=== PATIENT | male | born 1985 ===

== ENCOUNTER 2022-12-20 02:40 | Emergency (ER) | payer OTHER, SELFPAY ==
--- NOTE | ~2022-12-20 | XR_ITS ---
EXAMINATION: XR SHOULDER, RIGHT CLINICAL INFORMATION: Pain COMPARISON: None available. TECHNIQUE: Two views of the right shoulder. FINDINGS: No acute fracture or dislocation. Glenohumeral and acromioclavicular alignment is anatomic. Small marginal osteophytes along the joint. No abnormal soft tissue calcifications. XR/XR shoulder RT min 2V IMPRESSION: * No acute findings. * Mild acromioclavicular arthrosis.
[2022-12-20 02:50] VITALS: BP 149/91; PULSE 78; RESP 18; TEMP 36.9; O2SAT 100; BMI 32.5
--- NOTE | 2022-12-20 05:35 | ED.EXTPRO ---
HPI - Extremity Problem General Chief complaint: Extremity Problem Stated complaint: Right shoulder pain Time Seen by Provider: 12/20/22 04:23 Source: patient Mode of arrival: ambulatory Limitations: no limitations History of Present Illness HPI Narrative: 37-year-old male came in for evaluation of right shoulder pain. Patient woke up from sleep yesterday with right shoulder pain, declined any recent trauma or injury to the right shoulder, pain is localized to the right shoulder more with moving or touching the right shoulder, patient thinks he slept on his right shoulder the night before and that is what is causing his pain. No fever, no chills, no CP, no SOB. Related Data Previous Rx's Medication Instructions Recorded oxycodone 5 mg tablet 5 mg PO Q8H PRN pain #14 tabs 12/20/22 Allergies Allergy/AdvReac Type Severity Reaction Status Date / Time No Known Allergies Allergy Verified 12/20/22 02:52 Review of Systems Review of Systems: All other systems are reviewed and are negative Constitutional: Reports as per HPI and Reports no additional constitutional complaints Eyes: Reports as per HPI and Reports no additional eye complaints Reports system reviewed and no additional complaints, except as documented Cardiovascular: Reports as per HPI and Reports no additional cardiovascular complaints Respiratory: Reports as per HPI and Reports no additional respiratory complaints Gastrointestinal: Reports as per HPI and Reports no additional gastrointestinal complaints Genitourinary: Reports no additional female genitourinary complaints Musculoskeletal: Reports no additional musculoskeletal complaints Skin/Breast: Reports system reviewed and no additional complaints, except as docu Psychiatric: Reports no additional psychiatric complaints Endocrine: Reports no additional endocrine complaints Hematologic/Lymphatic: Reports no additional hematologic/lymphatic complaints Allergic/Immunologic: Reports no additional allergic/immunologic complaints Reports system reviewed and no additional complaints, except as documented and Reports Abnormal speech present [facility] Social History Social History Advance Directives: No Advance Directives Information Provided: Yes Physical Exam Vital Signs: Vital Signs: Last Vital Signs Temp 98.4 F 12/20/22 02:50 Pulse 78 12/20/22 02:50 Resp 18 12/20/22 02:50 BP 149/91 H 12/20/22 02:50 Pulse Ox 100 12/20/22 02:50 O2 Del Method Room Air 12/20/22 02:50 BMI result Body Mass Index 32.5 Vital signs have been reviewed as appeared to be correct. Blood pressure normal. Heart rate normal. Respiration rate normal. Temperature normal. Oxygen saturation normal. Appearance: Alert. Oriented X3. No acute distress. Head: Normal external exam. Normocephalic. Atraumatic. No Ochoa signs noted. No raccoon eyes noted Eyes: PERRLA. EOMI. Conjunctiva and sclera normal. Eyelids normal. ENT: TM's Normal. Pharynx normal. Uvula midline. Moist mucous membranes. No trismus noted. No drooling noted. No muffled voice noted. Neck: Normal inspection. Neck supple. FROM. No adenopathy. Thyroid Normal. No meningeal signs. No neck mass noted. CVS: Normal heart rate and rhythm. Heart sound normal. No murmurs noted. Pulses normal throughout. Respiratory: No respiratory distress. Painless inspiration. Breath sounds normal. No wheezes/rales/rhonchi noted. Chest nontender. No accessory muscle usage noted or decreased air movement noted. Abdomen: Soft and nontender. Bowel sounds normal in all 4 quadrants. No distention noted. No organomegaly noted. No visible injury noted. Back: No CVA tenderness. Full range of motion noted. Skin: Skin warm and dry. Normal skin color. Normal skin turgor. No rashes/lesions/lacerations noted. Extremities: Right shoulder held in adduction position with tender abduction, no deformity, no anterior fullness, neurovascular exam is intact. Neuro: Oriented X 3. Cranial nerve exam: II-XII are grossly intact No motor deficit. No sensory deficit. Reflexes normal. Course Course Course Narrative: Shoulder immobilization, pain control, heating pads, follow-up with orthopedic. Medical Decision Making Differential Diagnosis Differential Diagnoses: The differential diagnosis associated with the presentation includes (Rotator cuff tendinitis, arthritis, shoulder dislocation, fracture.) Independent Interpretation I performed an independent interpretation of an: Plain X-Ray (Right shoulder: No acute fracture, no dislocation.) Discharge Plan Discharge Clinical Impression: Right rotator cuff tendinitis Patient Disposition: Home, Self-Care Instructions: Rotator Cuff Tendinitis (ED) Prescriptions: New oxycodone 5 mg tablet 5 mg PO Q8H PRN (Reason: pain) Qty: 14 0RF Rx Instructions: Partial Fill upon patient request. Referrals: Rick Babcock MD [Physician] - Stand Alone Forms: Work/School Release
[2022-12-20] MEDS: oxyCODONE HCl Immed Release 5 MG TABLET 10 MG PO (05:47)
== END 2022-12-20 05:51 | disposition home or self-care (01) ==
PROVIDERS: Emergency Provider Emergency Medicine
DX: M75.101 Unspecified rotator cuff tear or rupture of right shoulder, not specified as traumatic (principal); M25.511 Pain in right shoulder
CPT/HCPCS: 73030; 99283

== ENCOUNTER 2024-10-15 10:08 | Emergency (ER) | payer BC, SELFPAY ==
[2024-10-15 10:12] VITALS: BP 148/91; PULSE 98; RESP 20; TEMP 36.9; O2SAT 100; BMI 31.6
--- NOTE | 2024-10-15 10:59 | ED_ITS ---
HPI - Dental/Oral General Chief complaint: Dental/Oral Stated complaint: Mouth pain, swelling Time Seen by Provider: 10/15/24 10:58 Source: patient and RN notes reviewed Mode of arrival: ambulatory Limitations: no limitations History of Present Illness ED Provider: Gloria Melton PA-C HPI Narrative: This is a 38-year-old male who presents emergency department for evaluation of left lower dental pain. 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 Patient reports that he has had increased pain to his right lower dentition starting yesterday. Denies any fevers or chills. Denies taking any medications at home to treat his current symptoms. Related Data Previous Rx's ?Medication ?Instructions ?Recorded oxycodone 5 mg tablet 5 mg PO Q8H PRN pain #14 tabs 12/20/22 acetaminophen 500 mg tablet 1,000 mg (2 x 500 mg) PO QID PRN 10/15/24 (Tylenol Extra Strength) pain #30 tabs amoxicillin 875 mg-potassium 1 tab PO BID 7 days #14 tabs 10/15/24 clavulanate 125 mg tablet ibuprofen 600 mg tablet 600 mg PO Q6H PRN pain #30 tabs 10/15/24 Allergies Allergy/AdvReac Type Severity Reaction Status Date / Time No Known Allergies Allergy Verified 10/15/24 10:15 Review of Systems Review of Systems: Yes all other systems are reviewed and are negative Constitutional: Constitutional: Reports as per [facility] Social History Social History Advance Directives: No Advance Directives Information Provided: Yes Do you have a plan to hurt others: No Plan Physical Exam Vital Signs: Vital Signs: Last Vital Signs Temp 98.5 F 10/15/24 11:16 Pulse 98 10/15/24 11:16 Resp 20 10/15/24 11:16 BP 148/91 H 10/15/24 11:16 Pulse Ox 100 10/15/24 11:16 O2 Del Method Room Air 10/15/24 11:16 BMI result Body Mass Index 31.6 Const: General: cooperative, comfortable and no acute distress Orientation/consciousness: patient oriented x3 Limitations: no limitations HEENT: Other: Tooth number 32 with very poor dentition, cracked, into cane. Surrounding teeth with notable decay, no gingival erythema, edema, fluctuance. No evidence of dental abscess. Head: Yes normal to inspection, Yes normocephalic and Yes atraumatic Ears: hearing grossly normal bilaterally General nose exam: Normal external nose present Face and sinus: Yes normal facial exam Mouth: Normal oral and palatal mucosa present, oropharynx normal and moist mucous membranes Teeth and gingiva: poor dentition Throat: Yes posterior oropharynx normal Eyes: General: appearance normal, both eyes and all related structures Eyelids: Yes eyelids normal Conjunctivae: conjunctivae normal Sclerae: sclerae normal Pupils: Equal, round and reactive pupils present EOM: EOMs intact bilaterally Neck: Neck: Yes normal visual inspection, Yes full ROM and Yes no lymphadenopathy Lymphatic: no lymphadenopathy noted Chest: Chest palpation & inspection: normal inspection of the chest Resp: Effort & Inspection: normal respiratory effort and able to speak in complete sentences Auscultation: clear to auscultation bilaterally Cardio: Rate: regular rate Rhythm: regular rhythm GI: Inspection: Yes normal to inspection Skin: General skin exam: no rashes or lesions noted Trauma: no lacerations or abrasions Wounds: no wounds Neuro: General: patient oriented x3 and moves all extremities Cranial nerves: Yes Equal, round and reactive pupils present Extrem: General: Yes normal to inspection Right upper extremity: normal to inspection Left upper extremity: normal to inspection Right lower extremity: normal to inspection Left lower extremity: normal to inspection Medical Decision Making Medical Decision Making MDM Narrative: This is a 38-year-old male who presents emergency department with complaints of dental pain which started yesterday. On arrival, patient mildly hypertensive at 148/91, all other vital signs within normal limits. Right upper and lower dentition in poor repair, specifically tooth number 32 is decayed, cracked. There is no evidence of dental abscess requiring incision and drainage today. Urged the importance of following up with a dentist as antibiotics are only a temporary solution. He understands this and he will follow-up with a dentist, encouraged to call today. He understands and agrees with plan. Given strict return precautions. Patient stable for discharge Differential Diagnosis Differential Diagnoses: The differential diagnosis associated with the presentation includes dental decay, dental abscess, dental fracture, TMJ Discharge Plan Discharge Clinical Impression: Toothache Patient Disposition: Home, Self-Care Instructions: Toothache (ED) Additional Instructions: You were seen in the emergency department due to dental pain. Please take prescribed antibiotic as directed. Finish the entire course even if your symptoms improve. You need to follow-up with a dentist, call today to make an appointment. Alternate between ibuprofen and or Tylenol as needed for pain and symptoms. Take ibuprofen 600 mg every 6 hours, 2 hours later take Tylenol 1g every 8 hours. Alternating between these 2 medications can help achieve a better managed pain. If any new or worsening symptoms occur including but not limited to worsening pain, swelling, fevers, chills, please seek emergent care. Prescriptions: New amoxicillin-pot clavulanate 875-125 mg tablet 1 tab PO BID 7 Days Qty: 14 0RF ibuprofen 600 mg tablet 600 mg PO Q6H PRN (Reason: pain) Qty: 30 0RF acetaminophen [Tylenol Extra Strength] 500 mg tablet 1,000 mg PO QID PRN (Reason: pain) Qty: 30 0RF No Action oxycodone 5 mg tablet 5 mg PO Q8H PRN (Reason: pain) Qty: 14 0RF Rx Instructions: Partial Fill upon patient request. Stand Alone Forms: Work/School Release Interventions: ED Discharge Assessment Last Done: 10/15/24 11:16 Discharge Date/Time: 10/15/24 11:16 Print Language: Danish
[2024-10-15 11:16] VITALS: BP 148/91; PULSE 98; RESP 20; TEMP 36.9; O2SAT 100
== END 2024-10-15 11:16 | disposition home or self-care (01) ==
PROVIDERS: Emergency Provider Emergency Medicine Emergency Medical Services
DX: K08.89 Other specified disorders of teeth and supporting structures (principal)
CPT/HCPCS: 99282; 99283

== ENCOUNTER 2024-10-22 08:55 | Emergency (ER) | payer BC, SELFPAY ==
--- NOTE | ~2024-10-22 | CT_ITS ---
EXAMINATION: CT SOFT TISSUE NECK WITH CONTRAST CLINICAL INFORMATION: Right dental abscess versus edema. COMPARISON: None available. TECHNIQUE: Following the intravenous administration of 60 mL of Omnipaque 350 intravenous contrast, helical imaging was performed in the axial plane with generation of coronal and sagittal reformatted images. This CT examination was performed using dose optimization techniques as appropriate, variously including the following: *Automated exposure control *Adjustment of mA and/or kV according to patient size (this includes techniques or standardized protocols for targeted exams where dose is matched to indication/reason for exam; i.e. extremities or head) *Use of iterative reconstruction technique. DLP: 983 mGy centimeter. FINDINGS: There is a periapical hypodensity in the alveolar region of the right third molar of the maxilla and associated the small, less than 5 mm hypodensity along the buccal margin of the maxilla and slightly right retromolar. Multiple dental cavities in the right third molar of the maxilla. There are other multiple periapical hypodensities involving the maxilla and mandible. No peripheral enhancing fluid collections in the oral cavity. Skull base, nasopharynx, retropharynx, oropharynx, hypopharynx and larynx demonstrated no gross masses or fluid collections. The salivary glands demonstrated no solid masses or enhancing lesion nor enlargement. The intraconal and extraconal compartments of the orbits demonstrate no masses or fluid collections. Knitter Mechanic spaces, parapharyngeal spaces and carotid spaces demonstrated no gross masses. Bilateral prominent likely reactive cervical lymph nodes. The thyroid gland demonstrates normal size and enhancement pattern without dominant nodules. The vessels are patent. Tympanic cavities and mastoid cells are aerated. Mucosal thickening, maxillary sinuses. No air-fluid levels. Dextroconvex nasal septum deviation. Annalise bullosa left middle turbinate. Spondylosis C5-6 and C6-[address]/CT soft tissue neck w IV con IMPRESSION: Probable periapical abscess right third molar, maxilla with associated 5 mm phlegmon along the buccal margin/retromolar. Poor dentition. Bilateral prominent cervical lymph nodes. Electronically signed by: Carroll Jackson MD 10/22/2024 01:00 PM EDT
[2024-10-22 09:10] VITALS: BP 182/106; PULSE 102; RESP 20; TEMP 36.6; O2SAT 98; BMI 31.6
--- NOTE | 2024-10-22 11:08 | ED_ITS ---
HPI - Dental/Oral General Chief complaint: Dental/Oral Stated complaint: dental pain Time Seen by Provider: 10/22/24 10:51 Source: patient, RN notes reviewed and old records reviewed Mode of arrival: ambulatory History of Present Illness ED Provider: Aleida Mcintyre PA-C HPI Narrative: 39-year-old male with no significant past medical history presenting to the ED complaining of persistent right-sided dental pain and swelling x 1 week. Patient was seen and treated in our ED on 10/15 for similar symptoms prescribed Augmentin, ibuprofen/Tylenol which she took without relief. Reports persistent swelling/discomfort to area. Denies drainage, fever, chills, difficulty or inability to swallow, ear pain Related Data Previous Rx's ?Medication ?Instructions ?Recorded oxycodone 5 mg tablet 5 mg PO Q8H PRN pain #14 tabs 12/20/22 acetaminophen 500 mg tablet 1,000 mg (2 x 500 mg) PO QID PRN 10/15/24 (Tylenol Extra Strength) pain #30 tabs amoxicillin 875 mg-potassium 1 tab PO BID 7 days #14 tabs 10/15/24 clavulanate 125 mg tablet ibuprofen 600 mg tablet 600 mg PO Q6H PRN pain #30 tabs 10/15/24 clindamycin HCl 150 mg capsule 450 mg (3 x 150 mg) PO TID 7 days 10/22/24 #63 caps hydrocodone 5 mg-acetaminophen 325 1 tab PO Q8H PRN pain, severe 3 10/22/24 mg tablet days #9 tabs Allergies Allergy/AdvReac Type Severity Reaction Status Date / Time No Known Allergies Allergy Verified 10/22/24 09:10 Review of Systems 2 Review of Systems: Yes all other systems are reviewed and are negative Constitutional: Constitutional: Reports as per [facility] Past Medical History Attestation statement: The following information was validated with the patient. Source: old records reviewed Social History Social History Advance Directives: No Advance Directives Information Provided: Yes Do you have a plan to hurt others: No Plan Physical Exam 2 Vital Signs: Vital Signs: Last Vital Signs Temp 98.7 F 10/22/24 12:25 Pulse 70 10/22/24 12:25 Resp 18 10/22/24 12:25 BP 179/97 H 10/22/24 12:25 Pulse Ox 100 10/22/24 12:25 O2 Del Method Room Air 10/22/24 12:25 BMI result Body Mass Index 31.6 Const: General: cooperative, healthy appearing and no acute distress O rientation/consciousness: patient oriented x3 Limitations: no limitations HEENT: Other: + right-sided submandibular lymphadenopa thy appreciated. Mild tenderness to right lower gingiva. No erythema/cellulitis, no fluctuance/induration. No overt neck swelling Head: Yes normal to inspection and Yes atraumatic Ears: hearing grossly normal bilaterally, external ears normal and TM's normal bilaterally General nose exam: Normal external nose present Face and sinus: Yes normal facial exam Mouth: no drooling Teeth and gingiva: caries and poor dentition T hroat: Yes posterior oropharynx normal, Yes uvula midline, No peritonsillar mass, No uvula laterally displaced and No uvular edema Eyes: General: appearance normal, both eyes and all related structures EOM: EOMs intact bilaterally Neck: Neck: Yes normal visual inspection and Yes no meningeal signs Resp: Effort & Inspection: normal respiratory effort, no respiratory distress and no stridor Cardio: Rate: regular rate Skin: Rashes: no rashes Wounds: no wounds Neuro: General: patient oriented x3, tone normal and no meningeal signs C ranial nerves: Yes CN's II-XII intact bilaterally Gait exam (Neuro): Normal gait present Extrem: General: Yes normal to inspection Course Course Course Narrative: -no leukocytosis. ESR/CRP mildly elevated CT soft tissue neck w IV con IMPRESSION: Probable periapical abscess right third molar, maxilla with associated 5 mm phlegmon along the buccal margin/retromolar. Poor dentition. Bilateral prominent cervical lymph nodes. >1310- will consult OMFS at [facility] due to failed outpatient treatment and patient without dentistry follow-up [facility]. Recommended oral antibiotics and close dentistry follow-up. No need for admission or further intervention at this time. We will refer patient to [facility] on [facility] who they have been working with & are accepting new patients Results discussed with patient including worrisome signs and symptoms and strict return precautions, and when to return to the emergency department. They verbalized understanding and feel safe for discharge at this time. Medications Administered Discontinued Medications Generic Name Dose Route Start Last Admin Trade Name Nathanael PRN Reason Stop Dose Admin Clindamycin Phosphate 600 mg in 50 mls @ 100 mls/hr 10/22/24 11:01 10/22/24 12:31 Cleocin IV 10/22/24 11:30 Infused ONCE ONE Infusion Iohexol 60 ml 10/22/24 12:22 10/22/24 12:23 Iohexol 350 Mg/Ml 100 Ml Infus..Btl IV 10/22/24 12:23 60 ml ONCE ONE Administration Ketorolac Tromethamine 15 mg 10/22/24 11:01 10/22/24 11:30 Ketorolac Tromethamine 15 Mg/Ml Vial IVPUSH 10/22/24 11:02 15 mg ONCE ONE Administration Oxycodone HCl 5 mg 10/22/24 11:10/22/24 11:30 Oxycodone Hcl Immed Release 5 Mg Tablet PO 10/22/24 11:02 5 mg ONCE ONE Administration Medical Decision Making Medical Decision Making MDM Narrative: 39-year-old male with no significant past medical history presenting to the ED complaining of persistent right-sided dental pain and swelling x 1 week. On exam hypertensive, tachycardic likely from pain, physical exam as noted above consistent with right-sided submandibular lymphadenopathy and poor dentition without focal abscess/fluctuance or induration appreciated. Concern for dental infection/abscess vs edema. No evidence of drainable collection. 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 No respiratory compromise Low suspicion for severe sepsis at this time Plan: Labs, CT, empiric IV antibiotics Please refer to course for remaining clinical decision making, interpretation of labs/imaging results, and discussions with consultants and/or family members. Differential Diagnosis Differential Diagnoses: The differential diagnosis associated with the presentation includes As above Admission/Observation Consideration of admission/observation: Escalation of care including admission/observation considered Lab Data [facility] Lab Attestation statement: I reviewed the patient's lab results. 10/22/24 11:19 10/22/24 11:19 Labs: Lab Results 10/22/24 Range/Units 11:19 WBC 9.8 (4.8-10.8) X10*3/uL RBC 4.51 L (4.60-5.80) X10*6/uL Hgb 13.8 L (14.0-18.0) g/dl Hct 39.7 L (42.0-52.0) % MCV 88.0 (80.0-98.0) fL MCH 30.6 (27.0-33.0) pg MCHC 34.8 (31.0-36.0) g/dl RDW 12.0 (11.0-16.0) % Plt Count 300 (160-400) X10*3/uL MPV 9.2 L (9.4-12.4) fL Immature Gran % (Auto) 0.6 H (0.0-0.4) % Neut % (Auto) 71.1 (45-73) % Lymph % (Auto) 22.2 (20-40) % [place] % (Auto) 4.7 (2-11) % Eos % (Auto) 1.2 (0-4) % Baso % (Auto) 0.2 (0-2) % Lymph # (Auto) 2.2 (1.2-4.9) X10*3/uL [place] # (Auto) 0.5 (0.1-1.2) X10*3/uL Eos # (Auto) 0.1 (0.0-0.4) X10*3/uL Baso # (Auto) 0.0 (0.0-0.2) X10*3/uL Abs Immat Gran (auto) 0.06 H (0.00-0.03) X10*3/uL Absolute Neuts (auto) 7.0 (2.0-8.3) x10*3/uL Absolute Nucleated RBC 0.000 (0.0-0.012) X10*3/uL Nucleated RBC % (auto) 0.0 (0.0-0.2) /100WBC ESR 64 H (0-15) MM/HR Sodium 138 (135-145) mmol/L Potassium 4.3 (3.3-5.1) mmol/L Chloride 104 (96-108) mmol/L Carbon Dioxide 27 (22-29) mmol/L Anion Gap 11 L (12-20) BUN 10 (9-16) mg/dL Creatinine 0.74 (0.5-1.4) mg/dL Estim Creat Clear Calc 181.1 Estimated GFR > 60 Random Glucose 197 H (60-115) mg/dL Calcium 9.6 (8.4-10.2) mg/dL C-Reactive Protein 0.60 H (< or = 0.50) mg/dL Independent Interpretation I performed an independent interpretation of an: CT Scan Radiology Impression Discussion of test interpretation with radiology: I have reviewed the radiologist's reading. External Record Review External record reviewed: Inpatient record, Office record, Outpatient record, Prior outpatient labs, Prior outpatient radiology, Primary care record and Outside ED record Tests considered The following testing was considered but not selected: As above Prescription Management I considered prescription management with: Pain Medication and Antibiotic Chronic Conditions Patient?s care impacted by: Other Social Determinants Patient?s care significantly limited by Social Determinants of Health including: Other Social Determinant of Health Critical Care Time Critical Care Time Critical Care Time: Yes Total Critical Care Time: 35 Attestation: I have personally provided critical care time exclusive of time spent on separately billable procedures. Time includes review of lab data, radiology results, discussion with consultants, and monitoring for potential decompensation. Intervention performed as documented. Discharge Plan Discharge Clinical Impression: Dental abscess Patient Disposition: Home, Self-Care Instructions: Dental Abscess (ED) Additional Instructions: CALL OR WALK TO [facility] [phone] You have a dental abscess with surrounding swelling. Clindamycin as an antibiotic please take as prescribed until completion. Continue taking ibuprofen for pain and swelling Vicodin as an opiate pain medication, take only when pain is severe for the next 3 days Is crucial you follow-up with a dentist If you develop any difficulty or inability to swallow, difficulty breathing, fevers or increased swelling return to the ED immediately Prescriptions: New clindamycin HCl 150 mg capsule 450 mg PO TID 7 Days Qty: 63 0RF hydrocodone-acetaminophen 5-325 mg tablet 1 tab PO Q8H PRN (Reason: pain, severe) 3 Days Qty: 9 0RF Rx Instructions: Partial Fill upon patient request. No Action oxycodone 5 mg tablet 5 mg PO Q8H PRN (Reason: pain) Qty: 14 0RF Rx Instructions: Partial Fill upon patient request. amoxicillin-pot clavulanate 875-125 mg tablet 1 tab PO BID 7 Days Qty: 14 0RF ibuprofen 600 mg tablet 600 mg PO Q6H PRN (Reason: pain) Qty: 30 0RF acetaminophen [Tylenol Extra Strength] 500 mg tablet 1,000 mg PO QID PRN (Reason: pain) Qty: 30 0RF Print Language: Urdu
[2024-10-22 11:28] LABS: MANUAL DIFF FLAG NO
[2024-10-22] MEDS: oxyCODONE HCl Immed Release 5 MG TABLET PO (11:30)
[2024-10-22] MEDS: Ketorolac Tromethamine 15 MG/ML VIAL IVPUSH (11:30)
[2024-10-22] MEDS: Clindamycin Phosphate/D5W 600 MG/50 ML PIGGYBACK 100 MG IV (11:33)
[2024-10-22 11:34] LABS: Basophils Percent Auto 0.2 % (0-2); Eosinophils Absolute Auto 0.1 X10*3/uL (0.0-0.4); Eosinophils Percent Auto 1.2 % (0-4); Hematocrit 39.7 % (42.0-52.0); Hemoglobin 13.8 g/dl (14.0-18.0); Imm Gran Abs Auto 0.06 X10*3/uL (0.00-0.03); Imm Gran Pct Auto 0.6 % (0.0-0.4); Lymphocytes Absolute Auto 2.2 X10*3/uL (1.2-4.9); Lymphocytes Percent Auto 22.2 % (20-40); Mean Corpuscular HGB Conc 34.8 g/dl (31.0-36.0); Mean Corpuscular Hemoglobin 30.6 pg (27.0-33.0); Mean Platelet Volume 9.2 fL (9.4-12.4); Monocytes Absolute Auto 0.5 X10*3/uL (0.1-1.2); Monocytes Percent Auto 4.7 % (2-11); Neutrophils Percent Auto 71.1 % (45-73); Platelet Count 300 X10*3/uL (160-400); Red Blood Count 4.51 X10*6/uL (4.60-5.80); White Blood Count 9.8 X10*3/uL (4.8-10.8)
[2024-10-22 11:52] LABS: Anion Gap 11 (12-20); Blood Urea Nitrogen 10 mg/dL (9-16); Calcium 9.6 mg/dL (8.4-10.2); Carbon Dioxide 27 mmol/L (22-29); Chloride 104 mmol/L (96-108); Creatinine Clr Calc Pharmacy 181.1; Estimated Glomerular Filt Rate > 60; Glucose Random 197 mg/dL (60-115); Potassium 4.3 mmol/L (3.3-5.1); Sodium 138 mmol/L (135-145)
[2024-10-22 12:12] LABS: Erythrocyte Sedimentation Rate 64 MM/HR (0-15)
[2024-10-22] MEDS: iohexoL 350 MG/ML 100 ML INFUS..BTL 60 ML IV (12:23)
[2024-10-22 12:25] VITALS: BP 179/97; PULSE 70; RESP 18; TEMP 37.1; O2SAT 100
--- NOTE | 2024-10-22 13:45 | PC.NURSE ---
JESSICA Pelayo on the phone with specialist at this time.
[2024-10-22 14:43] VITALS: BP 160/89; PULSE 64; RESP 18; TEMP 36.7; O2SAT 100
[2024-10-22 14:49] VITALS: BP 160/89; PULSE 64; RESP 18; TEMP 36.7; O2SAT 100
== END 2024-10-22 14:49 | disposition home or self-care (01) ==
PROVIDERS: Physician Assistant; Emergency Provider Emergency Medicine Emergency Medical Services
DX: K04.7 Periapical abscess without sinus (principal); K08.89 Other specified disorders of teeth and supporting structures
CPT/HCPCS: 36415; 70491; 80048; 85025; 85652; 86140; 87040; 96365; 96375; 99284; J0736; J1885; Q9967

== ENCOUNTER → 2024-10-22 11:01 | Outpatient (BNV) | payer BC, SELFPAY | PROVIDERS: Emergency Provider Emergency Medicine Emergency Medical Services; Visit Provider Radiology Diagnostic Radiology | DX: K04.7 Periapical abscess without sinus (principal) | CPT/HCPCS: 70491 ==

== ENCOUNTER 2025-07-05 09:44 | Emergency (ER) | payer OTHER, SELFPAY ==
[2025-07-05 09:50] VITALS: BP 136/79; PULSE 97; RESP 18; TEMP 36.6; O2SAT 99; BMI 29.5
--- NOTE | 2025-07-05 09:53 | ECG_ITS ---
Test Reason : chest pain Blood Pressure : */* mmHG Vent. Rate : 79 BPM Atrial Rate : 79 BPM P-R Int : 148 ms QRS Dur : 84 ms QT Int : 344 ms P-R-T Axes : 57 57 68 degrees QTcB Int : 394 ms Normal sinus rhythm ST elevation, consider early repolarization Borderline ECG No previous ECGs available Referred By: Generic ED Physician Electronically Signed By: TANVI CURTIS
--- NOTE | 2025-07-05 09:55 | ED_ITS ---
HPI - General Adult General Chief complaint: Abdominal Pain Stated complaint: General Medical Time Seen by Provider: 07/05/25 09:55 Source: patient, RN notes reviewed and old records reviewed Mode of arrival: ambulatory Limitations: no limitations History of Present Illness ED Provider: Chel PICKENS narrative: Patient is a 39-year-old male with history of T2 dm, HTN, HLD presenting to the emergency department with complaint of intermittent epigastric pain, belching, nausea and vomiting. Patient states that he has had this pain on and off for several years. Reports that recently over the past 2 weeks he has been noticing more frequent episodes of epigastric pressure, states that his belches or foul- smelling, ?not like a normal burp. ? Reports a small amount of blood streaking in his emesis this morning, no bile. Denies diarrhea. Denies fevers. Reports pain is a 5/10. Has an appointment with his PCP on 07/16. Tried Tums which provided temporary relief. MD complaint: epigastric pain Onset (ago): week(s) Related Data Previous Rx's ?Medication ?Instructions ?Recorded oxycodone 5 mg tablet 5 mg PO Q8H PRN pain #14 tab s 12/20/22 acetaminophen 500 mg tablet 1,000 mg (2 x 500 mg) PO Q ID PRN 10/15/24 (Tylenol Extra Strength) pain #30 tabs amoxicillin 875 mg-potassium 1 tab PO BID 7 days #14 t abs 10/15/24 clavulanate 125 mg tablet ibuprofen 600 mg tablet 600 mg PO Q6H PRN pain #30 t abs 10/15/24 clindamycin HCl 150 mg capsule 450 mg (3 x 150 mg) PO TID 7 days 10/22/24 #63 caps hydrocodone 5 mg-acetaminophen 325 1 tab PO Q8H PRN pa in, severe 3 10/22/24 mg tablet days #9 tabs omeprazole 20 mg capsule,delayed 20 mg PO DAILY #14 ca ps 07/05/25 release Allergies Allergy/AdvReac Type Severity Reaction Status Date / Time No Known Allergies Allergy Verified 07/05/25 09:51 Review of Systems 2 Review of Systems: as per hpi Yes all other systems are reviewed and are negative Constitutional: Constitutional: Reports as per HPI PMFSH Social History Social History Substance Use Type: Marijuana Substance Use Frequency: Occasionally Advance Directives: No Advance Directives Information Provided: No Do you have a plan to hurt others: No Plan Physical Exam ED Vital Signs: Vital Signs - 24 hr 07/05/25 09:50 07/05/25 10:27 Temperature 98 F Pulse Rate 97 Respiratory Rate 18 Blood Pressure 136/79 118/79 Pulse Oximetry 99 Oxygen Delivery Method Room Air BMI result Body Mass Index 29.5 Const General: cooperative, healthy appearing and no acute distress Orientation/consciousness: oriented to person, oriented to place, oriented to time and patient oriented x3 Limitations: no limitations HENMT Head: Yes normocephalic and Yes atraumatic Ears: external ears normal General nose exam: Normal external nose present Face and sinus: Yes face symmetric Mouth: oropharynx normal and moist mucous membranes Throat: Yes uvula midline Eyes Pupils: Equal, round and reactive pupils present Neck Neck: Yes normal visual inspection and Yes supple Resp Effort & Inspection: normal respiratory effort and able to speak in complete sentences Auscultation: clear to auscultation bilaterally Cardio Rate: regular rate Rhythm: regular rhythm Heart sounds: S1 normal heart sound present and S2 normal heart sound present GI Palpation (GI): Soft to palpation, Tenderness to palpation present (GI) in the epigastrum, no guarding and No Rebound tenderness present Auscultation: normoactive bowel sounds General: Yes no CVA tenderness Back/Spine/Pelvis Back: no CVA tenderness Skin General skin exam: elasticity normal and turgor normal Neuro General: oriented to person, oriented to place, oriented to time, patient oriented x3, moves all extremities, no focal motor deficits and CN's II-XI intact bilaterally Cranial nerves: Yes Equal, round and reactive pupils present Cognition (Neuro): normal cognition Extrem General: Yes full ROM, Yes no pedal edema and Yes no calf tenderness Psych Mental Status: mental status grossly normal Affect: normal affect Thought process: Normal thought process present Medical Decision Making Medical Decision Making MDM Narrative: Patient is a 39-year-old male with history of T2 dm, HTN, HLD presenting to the emergency department with complaint of intermittent epigastric pain, belching, nausea and vomiting. On exam patient is awake, A+Ox3, VS WNL, afebrile, normal neurological exam without focal deficits, physical exam findings as above. Given reported symptoms and physical exam findings, initial differential includes but is not limited to GERD, PUD, gastritis. Unlikely ACS but will check EKG and troponin. Mild epigastric tenderness on exam. Labs notable for mild leukocytosis, no significant electolyte abnormalities, no elevation of transaminases or Tbili, troponin negative. EKG shows normal sinus rhythm. Feel patient is stable for discharge home, will start on daily omeprazole and refer to GI for further evaluation of symptoms. Return precautions discussed. Patient verbalized understanding of and agreement with plan. Differential Diagnosis Differential Diagnoses: The differential diagnosis associated with the presentation includes as per [facility] Admission/Observation Consideration of admission/observation: Escalation of care including admission/observation considered Patient would have been admitted to the hospital and transferred to appropriate facility had their clinical presentation warranted hospital admission. Lab Data [facility] Lab Attestation statement: I reviewed the patient's lab results. as per [facility] 07/05/25 10:31 07/05/25 10:26 Labs: Lab Results 07/05/25 07/05/25 Range/Units 10:26 10:31 WBC 11.0 H (4.8-10.8) X10*3/uL RBC 4.55 L (4.60-5.80) X10*6/uL Hgb 13.8 L (14.0-18.0) g/dl Hct 41.2 L (42.0-52.0) % MCV 90.5 (80.0-98.0) fL MCH 30.3 (27.0-33.0) pg MCHC 33.5 (31.0-36.0) g/dl RDW 12.1 (11.0-16.0) % Plt Count 284 (160-400) X10*3/uL MPV 8.8 L (9.4-12.4) fL Immature Gran % (Auto) 0.3 (0.0-0.4) % Neut % (Auto) 68.8 (45-73) % Lymph % (Auto) 22.3 (20-40) % Orange % (Auto) 6.3 (2-11) % Eos % (Auto) 2.1 (0-4) % Baso % (Auto) 0.2 (0-2) % Lymph # (Auto) 2.5 (1.2-4.9) X10*3/uL Orange # (Auto) 0.7 (0.1-1.2) X10*3/uL Eos # (Auto) 0.2 (0.0-0.4) X10*3/uL Baso # (Auto) 0.0 (0.0-0.2) X10*3/uL Abs Immat Gran (auto) 0.03 (0.00-0.03) X10*3/uL Absolute Neuts (auto) 7.6 (2.0-8.3) x10*3/uL Absolute Nucleated RBC 0.000 (0.0-0.012) X10*3/uL Nucleated RBC % (auto) 0.0 (0.0-0.2) /100WBC Sodium 139 (135-145) mmol/L Potassium 4.4 (3.3-5.1) mmol/L Chloride 109 H (96-108) mmol/L Carbon Dioxide 22 (22-29) mmol/L Anion Gap 12 (12-20) BUN 11 (9-16) mg/dL Creatinine 0.68 (0.5-1.4) mg/dL Estim Creat Clear Calc 190.9 Estimated GFR > 60 Random Glucose 180 H (60-115) mg/dL Calcium 9.7 (8.4-10.2) mg/dL Total Bilirubin 0.5 (0.0-1.0) mg/dL Direct Bilirubin 0.2 (0.0-0.5) mg/dL AST 27 (5-37) U/L ALT 33 (0-40) U/L Alkaline Phosphatase 60 (39-117) U/L Troponin I High Sens < 2.7 (<3.5-35.0) ng/L Total Protein 7.6 (6.5-8.0) g/dL Albumin 4.5 (3.5-5.0) g/dL Lipase 52 (8-78) U/L Independent Interpretation I performed an independent interpretation of an: EKG (Normal sinus rhythm, rate 79 beats per minute, normal SC interval and QTC) External Record Review External record reviewed: Inpatient record, Office record and Outpatient record Prescription Management I considered prescription management with: Other Discharge Plan Discharge Clinical Impression: Acute epigastric pain Patient Disposition: Home, Self-Care Instructions: Abdominal Pain (ED), Epigastric Pain (ED) Additional Instructions: You have been evaluated in the emergency department today for abdominal pain. Your evaluation did not show evidence of medical conditions requiring emergent intervention at this time. You are being started on a medication called omeprazole and are being referred to GI for further evaluation of your symptoms which may include an endoscopy. Please keep your follow up appointment with your primary care physician. Return to the emergency department if you experience worsening or uncontrolled pain, fevers 100.4? F or greater, recurrent vomiting, inability to tolerate food or fluids by mouth, bloody stools or vomit, black or tarry stools, or any other concerning symptoms. Prescriptions: New omeprazole 20 mg capsule,delayed release(DR/EC) 20 mg PO DAILY Qty: 14 0RF No Action oxycodone 5 mg tablet 5 mg PO Q8H PRN (Reason: pain) Qty: 14 0RF Rx Instructions: Partial Fill upon patient request. amoxicillin-pot clavulanate 875-125 mg tablet 1 tab PO BID 7 Days Qty: 14 0RF ibuprofen 600 mg tablet 600 mg PO Q6H PRN (Reason: pain) Qty: 30 0RF acetaminophen [Tylenol Extra Strength] 500 mg tablet 1,000 mg PO QID PRN (Reason: pain) Qty: 30 0RF clindamycin HCl 150 mg capsule 450 mg PO TID 7 Days Qty: 63 0RF hydrocodone-acetaminophen 5-325 mg tablet 1 tab PO Q8H PRN (Reason: pain, severe) 3 Days Qty: 9 0RF Rx Instructions: Partial Fill upon patient request. Referrals: [facility] [Provider Group, Gastroenterology] - 1 week Clinical Impression: Acute epigastric pain Print Language: Lebanese
--- NOTE | 2025-07-05 10:08 | PC.NURSE ---
Patient presenting to ER with chest/ abdominal pain that began last week. Patient reports belching with a foul smell that is new to him. States he has nausea associated with vomiting for last week as well. Patient reports scant amount of blood in vomit this morning prior to coming in. Reports he has been taking Tums for acid reflux. Connected to bedside monitor with heart rate in 90's NSR. VSS.
[2025-07-05 10:27] VITALS: BP 118/79
[2025-07-05 10:35] LABS: MANUAL DIFF FLAG NO
[2025-07-05 10:36] LABS: Hematocrit 41.2 % (42.0-52.0); Hemoglobin 13.8 g/dl (14.0-18.0); Imm Gran Abs Auto 0.03 X10*3/uL (0.00-0.03); Imm Gran Pct Auto 0.3 % (0.0-0.4); Lymphocytes Absolute Auto 2.5 X10*3/uL (1.2-4.9); Mean Corpuscular HGB Conc 33.5 g/dl (31.0-36.0); Mean Corpuscular Hemoglobin 30.3 pg (27.0-33.0); Mean Corpuscular Volume 90.5 fL (80.0-98.0); NRBC Abs Auto 0.000 X10*3/uL (0.0-0.012); NRBC Pct Auto 0.0 /100WBC (0.0-0.2); Platelet Count 284 X10*3/uL (160-400); Red Blood Count 4.55 X10*6/uL (4.60-5.80); White Blood Count 11.0 X10*3/uL (4.8-10.8)
[2025-07-05 10:51] LABS: Alanine Aminotransferase 33 U/L (0-40); Albumin Level 4.5 g/dL (3.5-5.0); Alkaline Phosphatase 60 U/L (39-117); Anion Gap 12 (12-20); Aspartate Amino Transferase 27 U/L (5-37); Blood Urea Nitrogen 11 mg/dL (9-16); Calcium 9.7 mg/dL (8.4-10.2); Carbon Dioxide 22 mmol/L (22-29); Chloride 109 mmol/L (96-108); Creatinine Clr Calc Pharmacy 190.9; Estimated Glomerular Filt Rate > 60; Lipase 52 U/L (8-78); Potassium 4.4 mmol/L (3.3-5.1); Sodium 139 mmol/L (135-145); Total Protein 7.6 g/dL (6.5-8.0)
[2025-07-05 11:10] LABS: Troponin-I High Sensitivity < 2.7 ng/L (<3.5-35.0)
[2025-07-05 12:18] VITALS: BP 126/78; PULSE 79; RESP 14; TEMP 36.6; O2SAT 99
== END 2025-07-05 12:25 | disposition home or self-care (01) ==
PROVIDERS: Emergency Provider Emergency Medicine; PCP Nurse Practitioner Family
DX: R10.13 Epigastric pain (principal); I10 Essential (primary) hypertension; R07.9 Chest pain, unspecified; E11.9 Type 2 diabetes mellitus without complications; E78.5 Hyperlipidemia, unspecified; R11.2 Nausea with vomiting, unspecified
CPT/HCPCS: 36415; 80048; 80076; 83690; 84484; 85025; 93005; 99283; 99284

== ENCOUNTER → 2025-07-05 09:53 | Outpatient (BNV) | payer OTHER, SELFPAY | PROVIDERS: Emergency Provider Emergency Medicine; PCP Nurse Practitioner Family; Visit Provider Internal Medicine | DX: R07.9 Chest pain, unspecified (principal) | CPT/HCPCS: 93010 ==